=== PATIENT | male | born 1960 | race African-American/Black ===

== ENCOUNTER → 2023-08-25 09:13 | Day surgery (SDC) | payer OTHER, SELFPAY ==
[2023-08-25 09:30] VITALS: BP 131/75
[2023-08-25 09:44] VITALS: BMI 39.5
[2023-08-25 10:06] LABS: Hematocrit 30.7 % (39.0-52.0); Hemoglobin 10.1 g/dL (13.0-18.0); Mean Corp Hgb Conc. 32.9 g/dL (33.0-37.0); Mean Corpuscular Hgb 26.2 pg (27.0-31.0); Mean Corpuscular Volume 79.7 fL (80.0-94.0); Mean Platelet Volume 11.4 fL (7.4-10.4); Platelet Count 155 10^3/uL (130-400); Red Blood Cell Count 3.85 10^6/uL (4.70-6.10); Red Cell Dist. Width 15.2 % (11.5-14.5); White Blood Cell Count 7.2 10^3/uL (4.8-10.8)
[2023-08-25 10:22] LABS: INR 1.44; PT 17.8 Sec (11.4-14.6)
[2023-08-25 10:24] LABS: APTT 37.1 Sec (23.4-35.0)
--- NOTE | 2023-08-25 10:56 | W.PN.UPDATE ---
Update Note
Progress Note Update
Med rec performed
Eliquis documented as administered at [facility] on 08/24/23 at 20:00
Med was not held as ordered
Will cancel AVF creation today and reschedule
Explained to patient who agrees
De Baker III, MD
[facility] Vascular Surgery
[phone] (niuj)
[2023-08-25 11:25] LABS: Blood Urea Nitrogen 76 mg/dl (9-20); Calcium 8.1 mg/dl (8.4-10.2); Carbon Dioxide 18 mmol/L (22-30); Chloride 99 mmol/L (98-107); Estimated Creatinine Clearance 8 ml/min; Glucose 79 mg/dl (70-99); Potassium 6.1 mmol/L (3.5-5.1); Sodium 136 mmol/L (135-145); eGFR 4.21
== END ==
LOC: CATH 09:13
PROVIDERS: ATTENDING PHYSICIAN Surgery Vascular Surgery; FAMILY PHYSICIAN Internal Medicine
DX: I12.0 Hypertensive chronic kidney disease with stage 5 chronic kidney disease or end stage renal disease (principal); Z53.09 Procedure and treatment not carried out because of other contraindication; I48.91 Unspecified atrial fibrillation; Z99.2 Dependence on renal dialysis
CPT/HCPCS: 80048; 85027; 85610; 85730; 86850; 86900; 86901

== ENCOUNTER 2023-09-15 09:29 | Day surgery (SDC) | payer OTHER, SELFPAY ==
[2023-09-15] VITALS (10 sets, daily range): BP systolic 111–159; BP diastolic 60–90; BMI 39.3
[2023-09-15 10:23] LABS: Glucose - Point of Care 98 mg/dl (70-99)
[2023-09-15] MEDS: PERIDEX 0.12% ORAL RINSE 15 ML PO (11:03)
[2023-09-15] MEDS: BACTROBAN NASAL 1 GRAM NASAL (11:03)
[2023-09-15] MEDS: NSS 500 IV (11:04)
[2023-09-15 11:15] LABS: Hematocrit 30.4 % (39.0-52.0); Hemoglobin 9.6 g/dL (13.0-18.0); Mean Corp Hgb Conc. 31.6 g/dL (33.0-37.0); Mean Corpuscular Hgb 25.8 pg (27.0-31.0); Mean Corpuscular Volume 81.7 fL (80.0-94.0); Mean Platelet Volume 11.4 fL (7.4-10.4); Platelet Count 217 10^3/uL (130-400); Red Blood Cell Count 3.72 10^6/uL (4.70-6.10); Red Cell Dist. Width 14.5 % (11.5-14.5); White Blood Cell Count 6.3 10^3/uL (4.8-10.8)
[2023-09-15 12:18] LABS: % Basophils 0.3 % (0-2); % Immature Granulocytes 0.3 % (0-0.5); % Monocytes 13.1 % (1.7-9.3); % Neutrophils 64.3 % (42.2-75.2); Absolute Eosinophils 0.4 10^3/uL (0-0.7); Absolute Monocytes 0.8 10^3/uL (0.1-0.6); Absolute Neutrophils 3.9 10^3/uL (1.4-6.5); Hematocrit 30.1 % (39.0-52.0); Hemoglobin 9.5 g/dL (13.0-18.0); Mean Corp Hgb Conc. 31.6 g/dL (33.0-37.0); Mean Corpuscular Hgb 25.7 pg (27.0-31.0); Mean Corpuscular Volume 81.4 fL (80.0-94.0); Mean Platelet Volume 11.1 fL (7.4-10.4); Nucleated Red Blood Cells % 0 % (-); Platelet Count 223 10^3/uL (130-400); Red Cell Dist. Width 14.5 % (11.5-14.5)
[2023-09-15 12:23] LABS: INR 1.29; PT 15.9 Sec (11.4-14.6)
[2023-09-15 12:24] LABS: APTT 36.6 Sec (23.4-35.0)
[2023-09-15 12:42] LABS: Blood Urea Nitrogen 42 mg/dl (9-20); Calcium 8.8 mg/dl (8.4-10.2); Carbon Dioxide 30 mmol/L (22-30); Chloride 96 mmol/L (98-107); Estimated Creatinine Clearance 11 ml/min; Glucose 102 mg/dl (70-99); Potassium 4.5 mmol/L (3.5-5.1); Sodium 138 mmol/L (135-145); eGFR 6.13
[2023-09-15 12:43] LABS: Blood Urea Nitrogen 42 mg/dl (9-20); Calcium 8.9 mg/dl (8.4-10.2); Carbon Dioxide 29 mmol/L (22-30); Chloride 97 mmol/L (98-107); Estimated Creatinine Clearance 11 ml/min; Glucose 94 mg/dl (70-99); Potassium 4.7 mmol/L (3.5-5.1); Sodium 138 mmol/L (135-145)
--- NOTE | 2023-09-15 13:02 | W.SUR.PREOP ---
Pre-Operative Surgical Note
-
I have examined this patient prior to the performance of the scheduled procedure.
The patient's condition is unchanged from the time of the current History and
Physical and the patient is able to undergo the scheduled procedure.
--- NOTE | 2023-09-15 14:31 | W.[place]-PDMP ---
[place]-PDMP
-
Checked the [place]- Prescription Drug Monitoring Program website, no red flags identified; safe to proceed with prescription.
[2023-09-15 15:03] LABS: Glucose - Point of Care 101 mg/dl (70-99)
[2023-09-15] MEDS: TYLENOL 650 MG PO (16:02)
--- NOTE | 2023-09-15 16:42 | OR.RPT ---
Operative Report
Operative Report
Date of Operation: 09/15/2023
Pre Op Diagnosis: End-stage renal disease requiring hemodialysis and in need of permanent hemodialysis access
Post Op Diagnosis: End-stage renal disease requiring hemodialysis and in need of permanent hemodialysis access
Procedure: Creation of left upper extremity brachiocephalic arteriovenous fistula
Surgeon: De Baker III, MD
Spray Applicator: Rahul Ardon MD PGY-1
Anesthesia: General
Complications: None
Estimated Blood Loss: Less than 10 cc
History and Indications for Procedure: 63-year-old male with end-stage renal disease requiring hemodialysis. He is in need of more permanent hemodialysis access.
Procedure in Detail: Cedrick Montilla was correctly identified and brought to the operating room. He was placed supine on the operating table with the left arm abducted 90 degrees on a side table. The patient had a chronic elbow contracture and this
was taken into account while positioning. After adequate induction of anesthesia I performed intraoperative ultrasound on the veins of the left arm. I identified and measured the cephalic vein from the antecubital fossa to the shoulder. The vein
was of adequate quality and diameter for AV fistula creation. The left brachial artery was also identified in the upper arm and proximal forearm. An appropriate skin incision was marked near skin crease at the antecubital fossa. The left hand and
arm were circumferentially prepped and draped in usual sterile fashion. Preoperative antibiotics were administered. A timeout procedure was performed with the nursing and anesthesia staff confirming the patient's identity as well as the nature and
laterality of the procedure.
A transverse skin incision was made in the proximal forearm through the previously placed skin deandra. A combination of electrocautery and sharp dissection was used to expose the cephalic vein. Branches were ligated and divided between silk ties and
metal clips. The brachial artery was exposed using sharp dissection. Proximal and distal control was obtained on the brachial artery with vessel loops. The distal end of the cephalic vein was ligated with a silk tie and then transected with
scissors. The vein was flushed with heparinized saline solution. The vein flushed easily with no resistance. A bulldog clamp was placed on the vein. The brachial artery vessel loops were secured. An arteriotomy was made with an 11 blade and
extended slightly proximally and distally with Galindo scissors. The proximal and distal brachial artery were flushed with heparinized saline solution. An end-to-side anastomosis was created using a running 7-0 Prolene suture. Prior to the
completion of the anastomosis the brachial artery was allowed to temporarily forward bleed and back bleed. The area under the anastomosis was flushed with heparinized saline solution to remove any potential thrombus or debris. The anastomosis was
completed. The bulldog was removed from the vein. The proximal vessel loop was released first. After several heartbeats the distal vessel loop was released. There was an easily palpable thrill in the cephalic vein along its course in the upper
arm. The anastomotic suture line was closely inspected and hemostasis was achieved. Hemostasis was achieved in the wound bed. The wound was irrigated with saline solution. Local anesthesia was infiltrated into the skin and subcutaneous tissue
around the wound. The wound was closed in layers. Skin glue was applied.
At the conclusion of the case the patient had an easily palpable thrill in the cephalic vein in the upper arm which was marked at the skin level. The patient had a palpable radial pulse at the wrist.
The patient tolerated the procedure well and was taken to the recovery room in good condition.
Signed:
De Baker III, MD
[facility] Vascular Surgery
[phone] (rwti)
== END 2023-09-15 16:46 | disposition home or self-care (01) ==
LOC: CATH 09:29
PROVIDERS: ATTENDING PHYSICIAN Surgery Vascular Surgery
DX: I12.0 Hypertensive chronic kidney disease with stage 5 chronic kidney disease or end stage renal disease (principal); E11.22 Type 2 diabetes mellitus with diabetic chronic kidney disease; N18.6 End stage renal disease; Z99.2 Dependence on renal dialysis; I48.91 Unspecified atrial fibrillation; K21.9 Gastro-esophageal reflux disease without esophagitis; G47.33 Obstructive sleep apnea (adult) (pediatric); E78.5 Hyperlipidemia, unspecified; E66.9 Obesity, unspecified; Z68.39 Body mass index [BMI] 39.0-39.9, adult; Z79.01 Long term (current) use of anticoagulants
CPT/HCPCS: 36821; 80048; 82962; 85025; 85027; 85610; 85730; 93005

== ENCOUNTER → 2023-10-27 14:34 | Outpatient (REF) | payer OTHER, SELFPAY | LOC: RAD 14:34 | PROVIDERS: ATTENDING PHYSICIAN Physician Assistant | DX: I77.0 Arteriovenous fistula, acquired (principal) | CPT/HCPCS: 93990 ==